=== PATIENT | female | born 1985 | race Caucasian/White ===

== ENCOUNTER 2020-11-14 09:12 | Day surgery (SDC) | payer BC ==
[2020-11-07 10:56] LABS: BASOPHILS % (AUTO) 0.5 % (0-1); EOSINOPHILS # (AUTO) 0.2 X10'3 (0-0.9); EOSINOPHILS % (AUTO) 2.2 % (0-6); LYMPHOCYTES # (AUTO) 2.2 X10'3 (1.1-4.8); LYMPHOCYTES % (AUTO) 25.8 % (21-51); MEAN CORPUSCULAR HEMOGLOBIN 25.5 PG (27.0-31.0); MEAN CORPUSCULAR HGB CONC 33.2 g/dL (33.0-36.5); MEAN CORPUSCULAR VOLUME 76.8 FL (78-98); MEAN PLATELET VOLUME 9.1 FL (7.4-10.4); MONOCYTES # (AUTO) 0.5 X10'3 (0-0.9); MONOCYTES % (AUTO) 5.4 % (2-12); NEUTROPHILS # (AUTO) 5.6 X10'3 (1.8-7.7); NEUTROPHILS % (AUTO) 66.1 % (42-75); PRE OP HEMATOCRIT 41.3 % (35.0-45.0); PRE OP HEMOGLOBIN 13.7 g/dL (12.0-16.0); PRE OP PLATELET COUNT 326 X10'3 (140-440); RED BLOOD COUNT 5.37 X10'6 (4.20-5.60); RED CELL DISTRIBUTION WIDTH 14.2 % (11.5-14.5)
[2020-11-07 11:08] LABS: ALBUMIN 3.8 G/DL (3.4-5.0); ALBUMIN/GLOBULIN RATIO 0.8 (1.1-1.5); ALKALINE PHOSPHATASE 90 IU/L (46-116); BLOOD UREA NITROGEN 11 MG/DL (7-18); BUN/CREATININE RATIO 11.2 (6.6-38.0); CALCIUM 9.5 MG/DL (8.5-10.1); CHLORIDE 101 MMOL/L (99-107); CREATININE 0.98 MG/DL (0.40-0.90); PRE OP ALT 28 U/L (30-65); PRE OP ANION GAP 9 (8-16); PRE OP AST 22 U/L (10-37); PRE OP BILIRUB, TOTAL 0.7 MG/DL (0.0-1.0); PRE OP GLUCOSE 87 MG/DL (70-104); PRE OP POTASSIUM 3.9 MMOL/L (3.4-5.1); PRE OP SODIUM 137 MMOL/L (135-145); TOTAL CARBON DIOXIDE 27.4 MMOL/L (24-32); TOTAL PROTEIN 8.8 G/DL (6.4-8.2); eGFR 65 ML/MIN
[2020-11-07 11:39] LABS: HCG SERUM QL NEGATIVE
[~2020-11-14] VITALS: Ht 165.1 cm; Wt 86.4 kg
[2020-11-14] VITALS (11 sets, daily range): BP systolic 100–135; BP diastolic 60–79
[~2020-11-14 09:12] MED LIST: NO HOME MEDS; famotidine 20mg tablet PO ONE; ringers solution, lacted 1,000 ML IV SCH
[2020-11-14] MEDS ORDERED: clindamycin 600mg/D5W 50ml 50 ML IV ONE (10:00)
[2020-11-14] MEDS ORDERED: morphine 2 MG/ML inj. syringe IV PRN (11:05)
[2020-11-14] MEDS ORDERED: labetalol 20mg/4ml (5mg/ml) syringe IV PRN (11:05)
[2020-11-14] MEDS ORDERED: ringers solution, lacted 1,000 ML IV SCH (11:05)
[2020-11-14] MEDS ORDERED: fentaNYL/PF 50MCG/1 ML 2ML syringe IV PRN ×2 (11:05)
[2020-11-14] MEDS ORDERED: ondansetron/PF 4mg/2ml inj IV PRN (11:05)
[2020-11-14] MEDS ORDERED: morphine 4 MG/ML inj SYRINge IV PRN (11:05)
[2020-11-14] MEDS ORDERED: hydrALAZINE 20mg/ml inj. IV PRN (11:05)
[2020-11-14] MEDS ORDERED: sevoflurane 250ml liquid IH ONE (12:04)
[2020-11-14] MEDS ORDERED: dexamethasone sod phosphate 10mg/ml inj ONE (12:04)
[2020-11-14] MEDS ORDERED: neostigmine methylsulfate 1 MG/ML 10ml vial ONE (12:04)
[2020-11-14] MEDS ORDERED: fentaNYL/PF 50MCG/1 ML 2ML syringe ONE (12:10)
[2020-11-14] MEDS ORDERED: MIDAZolam 1 MG/ML 5ML VIAL ONE (12:10)
[2020-11-14] MEDS ORDERED: LIDOcaine 2% (20mg/ml) 5ml vial ONE (12:20)
[2020-11-14] MEDS ORDERED: propofol inj 20 ML IV ONE (12:20)
[2020-11-14] MEDS ORDERED: ondansetron/PF 4mg/2ml inj ONE (12:20)
[2020-11-14] MEDS ORDERED: rocuronium 10mg/ml inj IV ONE (12:20)
[2020-11-14] MEDS ORDERED: glycopyrrolate 0.2mg/ml inj ONE (13:05)
[2020-11-14] MEDS ORDERED: oxyCODONE/APAP 5-325mg tablet PO ONE (13:15)
--- NOTE | 2020-11-14 13:22 | NUR ---
Received from OR via [facility], accompanied by Anesthesiologist BRINA and report given by Anesthesiolgist.
--- NOTE | 2020-11-14 13:31 | NUR ---
Received from OR via [facility], accompanied by Anesthesiologist BRINA and report given by Anesthesiolgist. PATIENT HAS A 20 G IN THE RIGHT ARM, SHE HAS THREE ABDOMINAL BANDAIDS AND A PERIPAD, DRESSING CLEAN DRY AND INTACT. SIMPLE MASK RUNNING AT 10 LPM. LR RUNNING AT 100 ML. PATIENT DENIES PAIN AT THIS TIME. VSS... Addendum: 11/14/20 at 1351 by Serg Triana RN, RN Amended: Links added.
--- NOTE | 2020-11-14 15:08 | NUR ---
D/C FROM PACU PATIENT VERBALIZED UNDERSTANDING, OPPORTUNITY TO ASK QUESTIONS GIVEN AND PATIENT COMFORTABLE WITH DC. IV TAKEN OUT WITHOUT COMPLICATION. PATIENT HAS MET ALL DC CRITERIA FOR DC HOME. I HAVE REVIEWED D/C INSTRUCTIONS WITH PATIENT. TAKEN OUT VIA WHEELCHAIR WHERE PATIENT WAS TAKEN HOME WITH ALL BELONGINGS. FAMILY GAVE PATIENT TRANSPORT HOME. DRESSINGS CDI TO ABDOMEN. VSS. PAIN AT A TOLERABLE LEVEL. Addendum: 11/14/20 at 1516 by Serg Triana RN, RN Amended: Links added.
== END 2020-11-14 15:08 | disposition home or self-care (01) ==
LOC: PAS 09:12
PROVIDERS: ATTEND Surgery
DX: Z30.2 Encounter for sterilization (principal); K43.6 Other and unspecified ventral hernia with obstruction, without gangrene; Z20.822 Contact with and (suspected) exposure to COVID-19; E66.9 Obesity, unspecified; Z68.33 Body mass index [BMI] 33.0-33.9, adult; Z88.0 Allergy status to penicillin; Z88.1 Allergy status to other antibiotic agents; Z98.890 Other specified postprocedural states; K08.409 Partial loss of teeth, unspecified cause, unspecified class; Z79.899 Other long term (current) drug therapy
CPT/HCPCS: 36415; 49561; 58670; 80053; 82948; 84703; 85025; 86885; 86900; 86901; A6258; C1758; J1100; J2001; J2250; J2270; J2405; J2704; J2710; J3010; J7120; U0003; A4215; A4618; A6250; A7000; J3490